=== PATIENT | male | born 1950 | race Two or more races ===

== ENCOUNTER 2022-01-27 10:58 | Inpatient (IN) | payer MEDICARE, OTHER ==
[~2022-01-27] VITALS: Ht 175.3 cm; Wt 93.4 kg
--- NOTE | 2022-01-27 11:19 | NUR ---
VIRA WALTER FROM [facility] FOR EVAL AND TREATMENT OF R HIP PAIN x 1WEEK. DENIES ANY TRAUMA. TO ER BED 11, HOOKED TO MONITOR, CHANGED TO HOSP GOWN, WARM BLANKET PROVIDED. DR AUSTIN AT BEDSIDE
[2022-01-27] MEDS ORDERED: HYDROCODONE/APAP 5/325MG TABLET ONE (11:40)
--- NOTE | 2022-01-27 11:43 | NUR ---
SCRAP CARRIER AT BEDSIDE FOR BLOOD DRAW
[2022-01-27 11:50] LABS: BASOPHILS % (AUTO) 0.5 % (0.0-2.0); EOSINOPHILS % (AUTO) 0.2 % (0.0-6.0); HEMATOCRIT 38 % (39-51); HEMOGLOBIN 12.6 g/dL (13.5-17.5); LYMPHOCYTES # (AUTO) 0.5 K/uL (0.8-4.8); LYMPHOCYTES % (AUTO) 8.5 % (20.0-44.0); MEAN CORPUSCULAR HGB CONC 33 g/dl (31.0-36.0); MEAN CORPUSCULAR VOLUME 84 fL (80-96); MONOCYTES # (AUTO) 0.9 K/uL (0.1-1.30); MONOCYTES % (AUTO) 15.2 % (2.0-12.0); NEUTROPHILS # (AUTO) 4.5 K/uL (1.8-8.9); NEUTROPHILS % (AUTO) 75.6 % (43.0-81.0); PLATELET COUNT (AUTO) 139 K/uL (150-450); RED BLOOD CELL COUNT(AUTO) 4.56 MIL/uL (4.5-6.0)
[2022-01-27] MEDS ORDERED: IV NS 0.9% 1,000 ML BAG IV ONE (12:00)
[2022-01-27] MEDS ORDERED: HYDROCODONE/APAP 5/325MG TABLET PO ONE (12:00)
--- NOTE | 2022-01-27 12:00 | NUR ---
IV ACCESS ESTABLISHED L HAND G#20, FLUSHING WELL.
[2022-01-27 12:29] LABS: CALCIUM, SERUM 8.5 mg/dL (8.5-10.1); CARBON DIOXIDE 29 mmol/L (21-32); CHLORIDE 102 mmol/L (98-107); CREATININE 1.2 mg/dL (0.6-1.3); GLUCOSE 101 mg/dL (74-106); POTASSIUM 3.3 mmol/L (3.5-5.1); SODIUM SERUM 135 mmol/L (136-145); UREA NITROGEN, BLOOD 29 mg/dL (7-18)
--- NOTE | 2022-01-27 13:20 | NUR ---
COVID SWAB DONE AND SENT TO LAB
--- NOTE | 2022-01-27 13:26 | NUR ---
MOVE SHEET SUBMITTED AND CALLED FOR BED.
--- NOTE | 2022-01-27 13:40 | NUR ---
URINE COLLECTED AND SENT TO LAB
[2022-01-27 14:11] LABS: BILIRUBIN,URINE NEGATIVE (NEGATIVE); COLOR,URINE YELLOW (YELLOW); LEUKOCYTE ESTERASE ,URINE NEGATIVE (NEGATIVE); NITRITE, URINE NEGATIVE (NEGATIVE); PROTEIN,URINE NEGATIVE (NEGATIVE); UGLUCOSE NEGATIVE (NEGATIVE)
--- NOTE | 2022-01-27 16:14 | NUR ---
BED 322-1
--- NOTE | 2022-01-27 16:20 | NUR ---
REPORT GIVEN TO MARLON MONTERROSO OF TELE UNIT
--- NOTE | 2022-01-27 17:03 | NUR ---
TRANSFERRED TO BED 322 IN STABLE CONDITION
[2022-01-27] MEDS ORDERED: ZOLPIDEM TARTRATE 5 MG TABLET PO PRN (18:00)
[2022-01-27] MEDS ORDERED: Z GUARD REMEDY 4 OZ OINT TP PRN (18:00)
[2022-01-27] MEDS ORDERED: MAGNESIUM HYDROXIDE 30 ML UDC PO PRN (18:00)
[2022-01-27] MEDS ORDERED: HYDROCODONE/APAP 5/325MG TABLET PO PRN (18:00)
[2022-01-27] MEDS ORDERED: ONDANSETRON HCL/PF 4 MG/2 ML VIAL IVP PRN (18:00)
[2022-01-27] MEDS ORDERED: MAG HYDROX/AL HYDROX/SIMETH 30 ML UDC PO PRN (18:00)
[2022-01-27] MEDS ORDERED: ACETAMINOPHEN 325 MG TABLET PO PRN (18:00)
--- NOTE | 2022-01-27 18:20 | NUR ---
ms rn received a new admission from er, cc of right hip pain, dx of hypotension,72 year old male, awake,alert,oriented x4,appears to be weak, not in distress, respirations even and unlabored,no sob noted,denies pain at this time, will monitor patient.
--- NOTE | 2022-01-27 18:30 | NUR ---
ms rn patient has low b/p of 84/48, texted dr. corbett, awaiting for her to reply.
--- NOTE | 2022-01-27 18:45 | NUR ---
ms rn dr. corbett replied w/ orders made, will monitor patient.
[2022-01-27] MEDS ORDERED: POTASSIUM CHLORIDE 20 MEQ TAB.PRT.SR PO SCH (19:00)
--- NOTE | 2022-01-27 19:08 | NUR ---
ms rn on bed, awake, no distress noted, will montor patient.
--- NOTE | 2022-01-27 19:45 | NUR ---
RN OPENING NOTES RECEIVED PATIENT SLEEPING BUT EASILY AROUSABLE IN BED. A/O X4. PATIENT WITH REGULAR AND UNLABORED BREATHING ON ROOM AIR. NO SIGNS AND SYMPTOMS OF DISTRESS NOTED AT THIS TIME. NO COMPLAINS OF PAIN OR DISCOMFORT AT THIS TIME. IV ACCESS L HAND G #20 INFUSING NS @ 125 ML/HR. IV ACCESS PATENT AND INTACT. SAFETY PRECAUTIONS ENFORCED WITH BED LOCKED AND AT LOWEST POSITION. SIDERAILS UP X2. CALL LIGHT WITHIN REACH AT ALL TIMES. WILL CONTINUE TO MONITOR PATIENT.
[2022-01-27 20:00] VITALS: BP 84/46
[2022-01-28] VITALS: BP 121/76
[2022-01-28] MEDS: IV NS 0.9% 1,000 ML IV PRN ×2 (02:40→16:31)
[2022-01-28 04:00] VITALS: BP 98/62
[2022-01-28 06:41] LABS: CALCIUM, SERUM 8.2 mg/dL (8.5-10.1); CARBON DIOXIDE 30 mmol/L (21-32); CHLORIDE 102 mmol/L (98-107); CREATININE 0.9 mg/dL (0.6-1.3); GLUCOSE 83 mg/dL (74-106); MAGNESIUM 1.6 mg/dL (1.8-2.4); PHOSPHORUS 2.3 mg/dL (2.5-4.9); POTASSIUM 3.5 mmol/L (3.5-5.1); SODIUM SERUM 136 mmol/L (136-145); UREA NITROGEN, BLOOD 17 mg/dL (7-18)
--- NOTE | 2022-01-28 06:42 | NUR ---
RN CLOSING NOTES PATIENT STILL SLEEPING BUT EASILY AROUSABLE IN BED. A/O X4. PATIENT WITH REGULAR AND UNLABORED BREATHING ON ROOM AIR. NO SIGNS AND SYMPTOMS OF DISTRESS NOTED AT THIS TIME. NO COMPLAINS OF PAIN OR DISCOMFORT AT THIS TIME. IV ACCESS L HAND G #20 INFUSING NS @ 125 ML/HR. IV ACCESS PATENT AND INTACT. SAFETY PRECAUTIONS ENFORCED WITH BED LOCKED AND AT LOWEST POSITION. SIDERAILS UP X2. CALL LIGHT WITHIN REACH AT ALL TIMES. WILL ENDORSE CONTINUITY OF CARE TO DAY SHIFT NURSE.
[2022-01-28 06:45] LABS: CHOLESTEROL 102 mg/dL (<200); HDL CHOLESTEROL 58 mg/dL (40-60); LDL 34 mg/dL (0-99); THYROID STIMULATING HORMONE 1.683 uIU/mL (0.358-3.74); TRIGLYCERIDES 37 mg/dL (30-150)
[2022-01-28 06:51] LABS: BASOPHILS % (AUTO) 0.3 % (0.0-2.0); EOSINOPHILS % (AUTO) 0.8 % (0.0-6.0); HEMATOCRIT 37 % (39-51); HEMOGLOBIN 12.4 g/dL (13.5-17.5); LYMPHOCYTES # (AUTO) 1.1 K/uL (0.8-4.8); LYMPHOCYTES % (AUTO) 20.1 % (20.0-44.0); MEAN CORPUSCULAR HGB CONC 33 g/dl (31.0-36.0); MEAN CORPUSCULAR VOLUME 83 fL (80-96); MONOCYTES # (AUTO) 1.1 K/uL (0.1-1.30); MONOCYTES % (AUTO) 20.6 % (2.0-12.0); NEUTROPHILS # (AUTO) 3.1 K/uL (1.8-8.9); NEUTROPHILS % (AUTO) 58.2 % (43.0-81.0); PLATELET COUNT (AUTO) 151 K/uL (150-450); WHITE BLOOD COUNT (AUTO) 5.3 K/uL (4.3-11.0)
--- NOTE | 2022-01-28 07:17 | NUR ---
MAJOR ACCOUNT REPRESENTATIVE OPENING NOTES RECEIVED PATIENT ASLEEP IN BED. EASILY AWAKEN UPON CALL. A/O X4. ON RA. TOLERATING WELL. BREATHING EVEN AND UNLABORED. NOT ANY SIGN OF RESPIRATORY DISTRESS NOTED AT THIS TIME. ON TELE MONITOR WITH CURRENT READING NORMAL SR, HR 72. NO COMPLAIN OF ANY CARDIAC DISCOMFORT OR DISTRESS. IV ACCESS LEFT HAND G #20 INTACT AND PATENT WITH NS INFUSING @ 125 ML/HR. SAFETY MEASURES IN PLACE: BED AT LOWEST AND LOCKED POSITION, SIDE RAILS UP X2. CALL LIGHT WITHIN REACH AT ALL TIMES. WILL CONTINUE TO MONITOR PATIENT.
[2022-01-28] MEDS: PANTOPRAZOLE 40 MG TABLET.DR PO SCH (07:47)
[2022-01-28 08:00] VITALS: BP 95/68
[2022-01-28] MEDS ORDERED: MAGNESIUM OXIDE 400 MG TABLET PO ONE (08:00)
--- NOTE | 2022-01-28 08:29 | NUR ---
RN NOTES PT NOTED WITH LOW MAGNESIUM 1.6 TODAY, ADMINISTERED MG OXIDE 800MG PO ORDERED.
[2022-01-28] MEDS: MIDODRINE HCL (5MG) 5 MG TABLET PO SCH ×3 (08:41→16:20)
[2022-01-28] MEDS ORDERED: RISP0.2515 PO (09:50)
[2022-01-28] MEDS ORDERED: ATOR40TA PO (09:50)
[2022-01-28] MEDS ORDERED: ALBU18HF2 INH (09:50)
[2022-01-28] MEDS ORDERED: POLY17PO4 PO (09:50)
[2022-01-28] MEDS ORDERED: DIVA-78 PO (09:50)
[2022-01-28] MEDS ORDERED: AMLO-212 PO (09:50)
[2022-01-28] MEDS ORDERED: LEVE250T4 PO (09:50)
[2022-01-28] MEDS ORDERED: ESCI10TA PO (09:50)
[2022-01-28] MEDS ORDERED: SENN-261 PO (09:50)
[2022-01-28] MEDS ORDERED: ACET-868 PO (09:50)
[2022-01-28 12:00] VITALS: BP 94/58
[2022-01-28 13:32] LABS: EOSINOPHILS % (MANUAL) 1 % (0-4); LYMPHOCYTES % (MANUAL) 21 % (16-48); MONOCYTES % (MANUAL) 16 % (0-11.0); NEUTROPHILS % (MANUAL) 62 (42-76)
[2022-01-28] MEDS ORDERED: ALBUTEROL FS 2.5 MG/3 ML VIAL.NEB NEB PRN (14:00)
--- NOTE | 2022-01-28 14:14 | NUR ---
RN NOTES PT STILL WITH LOW BP 94/58 mmhg. MIDODRINE 5MG TAB GIVEN ORDERED. DR. THOMPSON ON UNIT AND REPORTED. DR. THOMPSON STATED SHE WILL INCREASE MIDODRINE TO 10MG TID. WILL CONTINUE TO MONITOR PT.
[2022-01-28] MEDS ORDERED: K PHOS NEUTRAL 250 MG TABLET PO ONE (15:30)
[2022-01-28 16:00] VITALS: BP 103/68
[2022-01-28] MEDS: DIVALPROEX SODIUM 500 MG TABLET.DR PO SCH (16:19)
[2022-01-28] MEDS: LEVETIRACETAM (250 MG) 250 MG TABLET PO SCH (16:19)
--- NOTE | 2022-01-28 18:49 | NUR ---
NURSERY SUPERVISOR CLOSING NOTES PATIENT ASLEEP IN BED. EASILY AWAKEN UPON CALL. A/O X4. ON RA. TOLERATING WELL. BREATHING EVEN AND UNLABORED. NOT ANY SIGN OF RESPIRATORY DISTRESS NOTED AT THIS TIME. ON TELE MONITOR WITH CURRENT READING NORMAL SR, HR 61. NO COMPLAIN OF ANY CARDIAC DISCOMFORT OR DISTRESS. IV ACCESS LEFT HAND G #20 INTACT AND PATENT WITH NS INFUSING @ 125 ML/HR. ALL NEEDS AND CARE PROVIDED TO PT. ENCOURAGED PT TO TURN AND REPOSITION Q2HRS AND NEEDED. ALSO ENCOURAGED PT TO USE THE CALL LIGHT IF ASSISTANCE IS NEEDED. SAFETY MEASURES IN PLACE: BED AT LOWEST AND LOCKED POSITION, SIDE RAILS UP X2. CALL LIGHT WITHIN REACH AT ALL TIMES. WILL ENDORSED TO TREE WRAPPER.
[2022-01-28 20:00] VITALS: BP 121/76
[2022-01-28] MEDS: risperiDONE 0.25 MG TABLET PO SCH (21:57)
[2022-01-29] MEDS: IV NS 0.9% 1,000 ML IV PRN ×3 (00:34→23:24)
[2022-01-29 06:09] LABS: BASOPHILS % (AUTO) 0.4 % (0.0-2.0); HEMATOCRIT 38 % (39-51); HEMOGLOBIN 12.7 g/dL (13.5-17.5); LYMPHOCYTES # (AUTO) 1.1 K/uL (0.8-4.8); LYMPHOCYTES % (AUTO) 24.4 % (20.0-44.0); MEAN CORPUSCULAR HGB CONC 33 g/dl (31.0-36.0); MEAN CORPUSCULAR VOLUME 83 fL (80-96); MONOCYTES # (AUTO) 0.9 K/uL (0.1-1.30); MONOCYTES % (AUTO) 18.8 % (2.0-12.0); NEUTROPHILS # (AUTO) 2.5 K/uL (1.8-8.9); NEUTROPHILS % (AUTO) 55.4 % (43.0-81.0); PLATELET COUNT (AUTO) 143 K/uL (150-450); RED BLOOD CELL COUNT(AUTO) 4.58 MIL/uL (4.5-6.0); WHITE BLOOD COUNT (AUTO) 4.6 K/uL (4.3-11.0)
--- NOTE | 2022-01-29 06:14 | NUR ---
RN CLOSING NOTES Patient stable overnight. A&Ox3. Walked to bathroom with assist several times throughout shift, denied any dizziness, lightheadedness, weakness or any s/s of hypotension. HAYDEE #20G IV patent and running NS at 125cc/hr. Urine clear and yellow. No BM overnight. Currently sleeping in bed though easy to wake.
[2022-01-29] MEDS: PANTOPRAZOLE 40 MG TABLET.DR PO SCH (06:37)
[2022-01-29 07:06] LABS: CALCIUM, SERUM 8.3 mg/dL (8.5-10.1); CREATININE 0.9 mg/dL (0.6-1.3); MAGNESIUM 1.6 mg/dL (1.8-2.4); PHOSPHORUS 2.3 mg/dL (2.5-4.9); POTASSIUM 3.4 mmol/L (3.5-5.1)
--- NOTE | 2022-01-29 07:52 | NUR ---
RN OPENING NOTE Patient in bed, awake. A/O x 4, able to make needs known. On room air, breathing evenly and unlabored. No SOB or s/s of distress noted. IV access on HAYDEE #20G infusing NS at 125 ml/hr. Patient denies any pain or discomfort at this time. Safety precautions in place: bed in low, locked position; siderails up x 2; call light within reach. Will continue to monitor.
[2022-01-29 08:00] VITALS: BP 101/63
[2022-01-29] MEDS: ATORVASTATIN 40 MG TABLET PO SCH (09:00)
[2022-01-29] MEDS: LEVETIRACETAM (250 MG) 250 MG TABLET PO SCH ×2 (09:00→16:17)
[2022-01-29] MEDS: DIVALPROEX SODIUM 500 MG TABLET.DR PO SCH ×2 (09:00→16:17)
[2022-01-29] MEDS: ESCITALOPRAM OXALATE (10 MG) 10 MG TABLET PO SCH (09:01)
[2022-01-29] MEDS: MIDODRINE HCL (5MG) 5 MG TABLET PO SCH ×3 (09:01→16:17)
[2022-01-29] MEDS ORDERED: POTASSIUM CHLORIDE 20 MEQ TAB.PRT.SR PO SCH (10:30)
[2022-01-29] MEDS: Magnesium 1GM/D5W 100ML PREMIX 100 ML IV SCH ×2 (11:07→12:09)
[2022-01-29] MEDS ORDERED: K PHOS NEUTRAL 250 MG TABLET PO ONE (14:00)
[2022-01-29 15:12] VITALS: BP 101/63
[2022-01-29 16:00] VITALS: BP 105/71
--- NOTE | 2022-01-29 18:57 | NUR ---
MS RN OPENING NOTE Patient in bed, resting. A/O x 4, able to make needs known. Stable on room air, breathing evenly and unlabored. No SOB or s/s of distress noted. IV access on HAYDEE #20G infusing NS at 125 ml/hr. Patient denies any pain or discomfort at this time. Due meds given. All needs attended to. Safety precautions maintained: bed in low, locked position; siderails up x 2; call light within reach. Will endorse to ballet dancer nurse for SMITHA.
--- NOTE | 2022-01-29 19:10 | NUR ---
MS RN OPENING NOTES: RECEIVED PATIENT IN BED, AWAKE, A/O X4. NO S/S OF DISTRESS NOTED. NO COMPLAIN OF PAIN. CALL LIGHT WITHIN REACH. BED ALARM ON. BED IN LOWEST AND LOCKED POSITION.
[2022-01-29 20:00] VITALS: BP 108/79
[2022-01-29] MEDS: risperiDONE 0.25 MG TABLET PO SCH (21:13)
[2022-01-30 07:07] LABS: BASOPHILS % (AUTO) 0.4 % (0.0-2.0); EOSINOPHILS % (AUTO) 0.9 % (0.0-6.0); HEMATOCRIT 39 % (39-51); HEMOGLOBIN 12.7 g/dL (13.5-17.5); LYMPHOCYTES # (AUTO) 1.3 K/uL (0.8-4.8); LYMPHOCYTES % (AUTO) 26.2 % (20.0-44.0); MEAN CORPUSCULAR HGB CONC 33 g/dl (31.0-36.0); MEAN CORPUSCULAR VOLUME 83 fL (80-96); MONOCYTES # (AUTO) 0.9 K/uL (0.1-1.30); MONOCYTES % (AUTO) 17.1 % (2.0-12.0); NEUTROPHILS # (AUTO) 2.8 K/uL (1.8-8.9); NEUTROPHILS % (AUTO) 55.4 % (43.0-81.0); PLATELET COUNT (AUTO) 143 K/uL (150-450); RED BLOOD CELL COUNT(AUTO) 4.64 MIL/uL (4.5-6.0); WHITE BLOOD COUNT (AUTO) 5.1 K/uL (4.3-11.0)
[2022-01-30 07:21] LABS: CALCIUM, SERUM 8.3 mg/dL (8.5-10.1); CREATININE 0.8 mg/dL (0.6-1.3); PHOSPHORUS 2.8 mg/dL (2.5-4.9); POTASSIUM 3.3 mmol/L (3.5-5.1)
--- NOTE | 2022-01-30 08:09 | NUR ---
MS RN OPENING NOTE Patient in bed, asleep. A/O x 4. On room air, breathing evenly and unlabored. No SOB or s/s of distress noted. IV access on HAYDEE #20G infusing NS at 125 ml/hr. Safety precautions in place: bed in low, locked position; siderails up x 2; call light within reach. Will continue to monitor.
[2022-01-30 08:13] VITALS: BP 115/66
[2022-01-30] MEDS: LEVETIRACETAM (250 MG) 250 MG TABLET PO SCH (08:23)
[2022-01-30] MEDS: ATORVASTATIN 40 MG TABLET PO SCH (08:23)
[2022-01-30] MEDS: PANTOPRAZOLE 40 MG TABLET.DR PO SCH (08:23)
[2022-01-30] MEDS: DIVALPROEX SODIUM 500 MG TABLET.DR PO SCH (08:23)
[2022-01-30] MEDS: ESCITALOPRAM OXALATE (10 MG) 10 MG TABLET PO SCH (08:23)
[2022-01-30] MEDS: MIDODRINE HCL (5MG) 5 MG TABLET PO SCH ×2 (08:24→12:21)
[2022-01-30] MEDS: IV NS 0.9% 1,000 ML IV PRN (08:25)
[2022-01-30] MEDS ORDERED: POTASSIUM CHLORIDE 20 MEQ TAB.PRT.SR PO SCH (10:00)
[2022-01-30 12:21] VITALS: BP 112/72
--- NOTE | 2022-01-30 13:05 | NUR ---
RN NOTE Report given to Sami Guillermo.
--- NOTE | 2022-01-30 13:59 | NUR ---
DISCHARGE NOTE Received order for discharge. Patient is A/O x 3-4, able to make needs known. Stable on room air, breathing evenly and unlabored. No SOB or s/s of distress noted. All belongings accounted for, belonging sheet signed. Discharge instructions given, patient verbalized understanding. IV access removed, catheter tip intact. Pressure dressing applied, no signs of bleeding noted. ID band removed. Exitcare folder given to EMT. Patient left in stable condition via ambulance with 2 mold bunch trimmer.
== END 2022-01-30 15:42 | DRG 641 ==
LOC: ER 11:08 → MED 16:25 → TELE 01-28 00:07 → MED 01-29 09:58
PROVIDERS: ADMIT Student in an Organized Health Care Education/Training Program; ATTEND Registered Nurse
DX: E86.1 Hypovolemia (principal); I95.2 Hypotension due to drugs; E87.1 Hypo-osmolality and hyponatremia; F31.9 Bipolar disorder, unspecified; Z20.822 Contact with and (suspected) exposure to COVID-19; M25.551 Pain in right hip; E87.6 Hypokalemia; F17.210 Nicotine dependence, cigarettes, uncomplicated; T50.905A Adverse effect of unspecified drugs, medicaments and biological substances, initial encounter; Y92.89 Other specified places as the place of occurrence of the external cause
CPT/HCPCS: 36415; 71045-TC; 73502; 80048-TC; 80061-TC; 80164-TC; 83605-TC; 83735-TC; 84100-TC; 84443-TC; 84484-TC; 85025-TC; 87040-TC; 87081-TC; 93307-TC; 97112-TC; 97116-TC; 97530-TC; C9803; G0378; J3475; J7030

== ENCOUNTER 2022-06-20 20:12 | Emergency (ER) | payer MEDICARE, OTHER ==
[~2022-06-20] VITALS: Ht 175.3 cm; Wt 95.3 kg
[~2022-06-20 20:12] MED LIST: ACET-868 PO; ALBU18HF2 INH; ATOR40TA PO; DIVA-78 PO; ESCI10TA PO; LEVE250T4 PO; POLY17PO4 PO; RISP0.2515 PO; SENN-261 PO
--- NOTE | 2022-06-20 20:50 | NUR ---
BLOOD DRAWN AND SENT TO LAB
--- NOTE | 2022-06-20 20:56 | NUR ---
PT BIBRA C/O RUQ PAIN X 1 WEEK. PT AAOX4 BREATHING EVENLY AND UNLABORED. PT ATTACHED TO MONITOR AND POX. PT GIVEN BLANKET AND CALL LIGHT WITHIN REACH. MD AT BEDSIDE.
[2022-06-20 21:00] LABS: BASOPHILS % (AUTO) 0.5 % (0.0-2.0); EOSINOPHILS % (AUTO) 1.5 % (0.0-6.0); HEMATOCRIT 42 % (39-51); HEMOGLOBIN 13.5 g/dL (13.5-17.5); LYMPHOCYTES # (AUTO) 1.2 K/uL (0.8-4.8); LYMPHOCYTES % (AUTO) 30.4 % (20.0-44.0); MEAN CORPUSCULAR HGB CONC 32 g/dl (31.0-36.0); MEAN CORPUSCULAR VOLUME 85 fL (80-96); MONOCYTES # (AUTO) 0.8 K/uL (0.1-1.30); MONOCYTES % (AUTO) 19.5 % (2.0-12.0); NEUTROPHILS # (AUTO) 1.9 K/uL (1.8-8.9); NEUTROPHILS % (AUTO) 48.1 % (43.0-81.0); PLATELET COUNT (AUTO) 138 K/uL (150-450); RED BLOOD CELL COUNT(AUTO) 5.01 MIL/uL (4.5-6.0); WHITE BLOOD COUNT (AUTO) 3.9 K/uL (4.3-11.0)
--- NOTE | 2022-06-20 21:00 | NUR ---
XRAY AT BEDSIDE
[2022-06-20 21:25] LABS: ALANINE AMINOTRANSFERASE 17 U/L (12-78); ALBUMIN 2.6 g/dL (3.4-5.0); ALKALINE PHOSPHATASE 61 U/L (46-116); ASPARTATE AMINOTRANSFERASE 18 U/L (15-37); BILIRUBIN,DIRECT 0.1 mg/dL (0.0-0.2); CALCIUM, SERUM 8.8 mg/dL (8.5-10.1); GLUCOSE 107 mg/dL (74-106); LIPASE 175 U/L (73-393); TOTAL PROTEIN, SERUM 6.3 g/dL (6.4-8.2); UREA NITROGEN, BLOOD 16 mg/dL (7-18)
[2022-06-20 21:40] LABS: BILIRUBIN,URINE SMALL (NEGATIVE); COLOR,URINE YELLOW (YELLOW); LEUKOCYTE ESTERASE ,URINE NEGATIVE (NEGATIVE); NITRITE, URINE NEGATIVE (NEGATIVE); PH,URINE 6.5 (5.0-8.0); PROTEIN,URINE NEGATIVE (NEGATIVE); UGLUCOSE NEGATIVE (NEGATIVE)
[2022-06-20 22:19] LABS: CARBON DIOXIDE 26 mmol/L (21-32); CHLORIDE 103 mmol/L (98-107); SODIUM SERUM 139 mmol/L (136-145)
--- NOTE | 2022-06-20 22:24 | NUR ---
[facility] ETA: 90-120. REPORT GIVEN TO SONYA AT THE FACILITY
[2022-06-20] MEDS ORDERED: HYDROCODONE/APAP 5/325MG TABLET ONE (22:28)
[2022-06-20] MEDS ORDERED: HYDROCODONE/APAP 5/325MG TABLET PO ONE (22:30)
--- NOTE | 2022-06-21 00:37 | NUR ---
[facility] AT BED SIDE TO DIRECTOR OF NURSING THE PT
[2022-06-21 00:49] VITALS: BP 114/80
== END 2022-06-21 00:45 ==
LOC: ER 20:21
DX: K42.9 Umbilical hernia without obstruction or gangrene (principal); R10.9 Unspecified abdominal pain; I10 Essential (primary) hypertension; E78.5 Hyperlipidemia, unspecified; F17.200 Nicotine dependence, unspecified, uncomplicated; Z79.899 Other long term (current) drug therapy
CPT/HCPCS: 36415; 80048-TC; 80076-TC; 83690-TC; 85025-TC